=== PATIENT | female | born 1995 | race African-American/Black ===

== ENCOUNTER 2019-04-02 20:11 | Emergency (ER) | payer OTHER ==
[2019-04-02 21:13] LABS: #Lymphocytes 0.3 thou/uL (1.20-3.40); #Monocytes 0.3 thou/uL (0.11-0.59); #Neutrophils 6.9 thou/uL (1.40-6.50); %Eosinophils 0.5 % (0.0-10.0); %Lymphocytes 3.4 % (21.0-51.0); %Monocytes 4.2 % (0.0-10.0); %Neutrophils 91.9 % (42.0-75.0); Hemoglobin 12.7 g/dL (12.0-16.0); Mean Corpuscular HGB CONC 32.2 g/dL (32.0-36.0); Mean Corpuscular Hemoglobin 27.6 pg (27.0-31.0); Mean Corpuscular Volume 85.9 fL (78.0-98.0); Platelet Count 199 thou/uL (130-400); RBC Distribution Width 12.7 % (11.5-14.5); Red Blood Cell (RBC) Count 4.61 mill/uL (4.20-5.40); White Blood Cell (WBC) Count 7.5 thou/uL (4.8-10.8)
[2019-04-02] MEDS ORDERED: Ondansetron PF 4 MG/2 ML Vial ONE (21:27)
[2019-04-02 21:36] LABS: ALT (SGPT) 14 U/L (8-55); AST (SGOT) 21 U/L (5-34); Albumin 4.2 g/dL (3.5-5.0); Alkaline Phosphatase 73 U/L (40-150); Anion Gap 14 mmol/L (10-20); BUN (Urea Nitrogen) 7 mg/dL (7.0-18.7); Bilirubin, Total 0.5 mg/dL (0.2-1.2); Calc. Creatinine Clearance 0 mL/min (70-130); Calcium 9.6 mg/dL (7.8-10.44); Carbon Dioxide 18 mmol/L (22-29); Chloride 102 mmol/L (98-107); Estimated GFR-MDRD Greater than 90; Globulin 3.2 g/dL (2.4-3.5); Glucose 78 mg/dL (70-105); Lipase 26 U/L (8-78); Potassium 3.6 mmol/L (3.5-5.1); Protein, Total 7.4 g/dL (6.0-8.3); Sodium 130 mmol/L (136-145)
[2019-04-02 22:20] LABS: Bilirubin Negative (Negative); Blood, Urine Negative (Negative); Clarity Clear (Clear); Glucose, Urine (Dipstick) Normal (Negative); Leukocyte 25 Leu/uL (Negative); Mucous/LPF 2+ LPF (<2+); Nitrite Negative (Negative); Protein, Urine (Dipstick) 30 mg/dL (Neg-Trace); RBC/HPF 0-3 HPF (0-3); Squamous Epithelial 0-3 HPF (0-3); Urobilinogen Normal mg/dL (Less than 2); WBC/HPF 0-3 HPF (0-3)
--- NOTE | 2019-04-02 22:25 | RAD ---
EXAM: Portable chest PROVIDED CLINICAL HISTORY: Fever COMPARISON: None FINDINGS: Cardiac and mediastinal silhouette is within normal limits. No focal consolidation, pleural fluid or pneumothorax evident. IMPRESSION: No evidence for an acute cardiopulmonary process.
[2019-04-02 22:33] LABS: Bacteria/HPF Rare-Few HPF (None Seen)
[2019-04-03 01:27] LABS: Bilirubin Negative (Negative); Blood, Urine Negative (Negative); Clarity Clear (Clear); Glucose, Urine (Dipstick) Normal (Negative); Leukocyte Negative Leu/uL (Negative); Nitrite Negative (Negative); Protein, Urine (Dipstick) Negative (Neg-Trace); Urobilinogen Normal mg/dL (Less than 2)
--- NOTE | 2019-04-06 13:26 | EKG ---
Test Reason : Blood Pressure : / mmHG Vent. Rate : 102 BPM Atrial Rate : 102 BPM P-R Int : 154 ms QRS Dur : 086 ms QT Int : 332 ms P-R-T Axes : 040 060 002 degrees QTc Int : 432 ms Sinus tachycardia Nonspecific T wave abnormality Abnormal ECG Confirmed by DAMIR HAYNES MD ([id number]), editor map CHAZ YUAN ([id number]) on 04/06/2019 1:26:01 PM Referred By: Confirmed By:DAMIR HAYNES MD
== END 2019-04-03 01:43 | disposition home or self-care (01) ==
LOC: ERS 20:11
DX: O99.281 Endocrine, nutritional and metabolic diseases complicating pregnancy, first trimester (principal); E86.0 Dehydration; O99.011 Anemia complicating pregnancy, first trimester; Z3A.12 12 weeks gestation of pregnancy
CPT/HCPCS: 36415; 71045; 80053; 81003; 81015; 83605; 83690; 85025; 87086; 87804; 93005; 96361; 96374; J2405

== ENCOUNTER 2019-09-19 17:47 | Day surgery (SDC) | payer OTHER ==
[2019-09-19 18:17] VITALS: BMI 23.6
[2019-09-19 18:23] VITALS: BP 116/63; TEMP 98.6
[2019-09-19] MEDS ORDERED: hydrALAZINE 20 MG/ML VIAL SLOW IVP PRN (19:43)
--- NOTE | 2019-09-19 20:00 | HP ---
TIME OF EVALUATION: 1930 until 1944. LOCATION: Labor and Delivery in Triage bed A. This is a patient of Barb Pearson. REASON FOR EVALUATION: Spotting at 37 weeks and 2 days. HISTORY OF PRESENT ILLNESS: This is a 23-year-old , G1, P0, at 37 weeks and 2 days with an EDC of 10/08/2019, here for some spotting. She states that she has a history of herpes simplex virus, but has no symptoms of a current outbreak and she is on Valtrex. She states that she was seen by Barb Pearson today in the office and she had an exam performed and she was 1 cm. She has good movement. Denies leakage of fluid and denies gross bleeding. REVIEW OF SYSTEMS: Complete review of systems was checked and is otherwise negative unless specified in the HPI. PAST MEDICAL HISTORY: Negative. ALLERGIES: NONE. SOCIAL HISTORY: Negative for alcohol, tobacco, or smoking. PAST SURGICAL HISTORY: Prior tonsils and adenoid removal. PHYSICAL EXAMINATION: VITAL SIGNS: Her blood pressure is 116/63, respirations are 18 and unlabored, and she is afebrile. Her pulse is in the 80s. GENERAL: She is in no acute distress. ABDOMEN: Soft and nontender. CERVICAL: Exam is performed by Ted, the patient's nurse, reveals her cervix to be 1 cm dilated, thick, and still -2 to -3 station. There is no gross evidence of bleeding or leakage of fluid. External monitor, I reviewed the heart tracing and the heart tones are reassuring with a normal baseline at about 150 with moderate variability and acceleration. There are no decelerations. Tocodynamometer shows irregular contractions about every 1-3 minutes, but they are still irregular. ASSESSMENT: This is a G1, P0, at early term (37 weeks and 2 days), who is having spotting likely because of her prior cervical examination. There is no recent history of trauma or a vaginal intercourse. The patient states good movement and strip is reactive. PLAN: 1. Reassurance given. 2. No evidence of labor at this time. 3. Okay for expectant management and okay for the patient to keep her followup appointment. 4. I have evaluated and seen the patient at bedside and given her this information as well. Job ID: [id number]
== END 2019-09-19 20:02 | disposition home or self-care (01) ==
LOC: L&D/OP 17:47
PROVIDERS: ATTEND Advanced Practice Midwife
DX: O26.853 Spotting complicating pregnancy, third trimester (principal); O98.513 Other viral diseases complicating pregnancy, third trimester; B00.9 Herpesviral infection, unspecified; Z3A.37 37 weeks gestation of pregnancy
CPT/HCPCS: 99282

== ENCOUNTER 2019-09-26 06:00 | Inpatient (IN) | payer OTHER ==
--- NOTE | 2019-09-26 06:24 | PDOC.LDHP ---
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 Current medications: pre- vitamins, iron Previous surgical history: other (Tonsils and adenoids) Allergies/Adverse Reactions: Allergies Allergy/AdvReac Type Severity Reaction Status Date / Time No Known Allergies Allergy Unverified 09/19/19 18:26 Social history: none - Physical Exam Vital signs reviewed and normal: yes General: NAD Heart: RRR Lungs: nonlabored breathing Abdomen: gravid Extremeties: no edema FHT: category 1 - OB Labs Blood type: B RH: positive Antibody Screen: negative HIV: negative RPR: negative HEPSAg: negative 1 hour GCT: negative GBS: negative Urine drug screen: negative Rubella: immune Additional Labs: low risk NIPS neg ms AFP - Assessment L&D Assessment: medically indicated induction - Plan Plan: admit to L&D, other (Remove Dilapan cerical dilators x 5 Start pitocin for IOL)
[2019-09-26] MEDS ORDERED: Lidocaine 2% MPF 10 ML AMP (For Epidural Use) ONE (11:27)
[2019-09-26] MEDS ORDERED: Methylergonovine 0.2 MG/ML VIAL IM PRN ×2 (12:07→20:50)
[2019-09-26] MEDS ORDERED: HYDROcodone/Acetaminophen 5/325 mg Tablet PO PRN ×4 (12:07→20:50)
[2019-09-26] MEDS ORDERED: hydrALAZINE 20 MG/ML VIAL SLOW IVP PRN ×2 (12:07→20:50)
[2019-09-26] MEDS ORDERED: Ibuprofen 800 MG TAB PO PRN (12:07)
[2019-09-26] MEDS ORDERED: Promethazine HCl 25 MG/ML VIAL IM PRN ×2 (12:07→15:41)
[2019-09-26] MEDS ORDERED: Ondansetron PF 4 MG/2 ML Vial IVP PRN ×2 (12:07→15:41)
[2019-09-26] MEDS ORDERED: Misoprostol 200 MCG TAB PR PRN (12:07)
[2019-09-26] MEDS ORDERED: NS / Oxytocin 40 units/1000ml 1,000 ML IV PRN (12:07)
[2019-09-26] MEDS ORDERED: Lidocaine 1% (PF) 30 ML VIAL SC PRN (12:07)
[2019-09-26] MEDS ORDERED: Butorphanol Tartrate 1 MG/ML VIAL SLOW IVP PRN (12:07)
[2019-09-26] MEDS ORDERED: NS w/ Oxytocin 10 units 500 ML IV SCH (12:07)
[2019-09-26] MEDS: Lactated Ringer's 1,000 ML IV SCH ×2 (12:22→15:40)
[2019-09-26 12:37] VITALS: BMI 23.6
[2019-09-26 12:37] LABS: Hemoglobin 12.4 g/dL (12.0-16.0); Mean Corpuscular HGB CONC 32.5 g/dL (32.0-36.0); Mean Corpuscular Hemoglobin 27.9 pg (27.0-31.0); Mean Corpuscular Volume 85.9 fL (78.0-98.0); Mean Platelet Volume 9.7 fL (7.4-10.4); Platelet Count 170 thou/uL (130-400); RBC Distribution Width 13.7 % (11.5-14.5); Red Blood Cell (RBC) Count 4.44 mill/uL (4.20-5.40); White Blood Cell (WBC) Count 9.8 thou/uL (4.8-10.8)
[2019-09-26 13:18] LABS: HBSAg Index 0.26 S/CO (0-0.99); Hep B Surf Ag Non-Reactive S/CO (NonReactive)
[2019-09-26 13:18] LABS: Syphilis Antibody Nonreactive (Nonreactive); Syphilis Antibody Index 0.04 S/CO (<1.00 Non-Reactive)
[2019-09-26] MEDS ORDERED: Fentanyl 4 mcg/Bup 0.1% Cadd 100 ML ONE (15:06)
[2019-09-26] MEDS ORDERED: ePHEDrine/0.9% NaCl/PF SYRINGE 50 mg/10 ml SLOW IVP PRN (15:41)
[2019-09-26] MEDS ORDERED: diphenhydrAMINE 50 MG/ML VIAL IVP PRN (15:41)
[2019-09-26] MEDS ORDERED: Lactated Ringer's 500 ML IV PRN (15:41)
[2019-09-26] MEDS ORDERED: Naloxone HCl 0.4 mg/ml Vial IVP PRN ×2 (15:41)
[2019-09-26] MEDS ORDERED: Acetaminophen 325 MG TAB PO PRN (15:41)
[2019-09-26] MEDS ORDERED: Fentanyl 4 mcg/Bupivacaine 0.1% Cassette 100 ML EPIDURAL SCH (15:45)
[2019-09-26] MEDS ORDERED: Communication Order-Pharmacy FS SCH (15:45)
--- NOTE | 2019-09-26 17:22 | PDOC.OPDEL ---
OB Operative/Delivery Note Delivery Dr/Surgeon: Ruben byrne Pre-Delivery Diagnosis: medically indicated induction Procedure/Post Delivery Dx: spontaneous vaginal delivery Weeks gestation: 38 Anesthesia: epidural - Findings A Sex: male Weight: 6 lb 3 oz - 1 min: 8 - 5 min: 9 - Additional Findings/Plan Placenta delivered: spontaneous Repaired Obstetrical Laceration: none Estimated blood loss: 500mL Post delivery plan: routine recovery
[2019-09-26] MEDS ORDERED: Bisacodyl 10 MG SUPP PR PRN (20:50)
[2019-09-26] MEDS ORDERED: NS / Oxytocin 40 units/1000ml 1,000 ML IV SCH (20:50)
[2019-09-26] MEDS ORDERED: Benzocaine-Menthol 82.5 ML CAN TOP PRN (20:50)
[2019-09-26] MEDS ORDERED: Misoprostol 200 MCG TAB VAG PRN (20:50)
[2019-09-26] MEDS ORDERED: Milk Of Magnesia 30 ML UDCUP PO PRN (20:50)
[2019-09-26] MEDS: Ibuprofen 800 MG TAB PO SCH (22:31)
[2019-09-26] MEDS: Docusate Calcium (SURFAK) 240 MG CAP PO SCH (22:31)
[2019-09-27] MEDS: Ibuprofen 800 MG TAB PO SCH ×3 (05:06→21:14)
--- NOTE | 2019-09-27 05:31 | PDOC.PP ---
Post Progress Note Post Day #: 1 PO intake tolerated: yes Flatus: yes Ambulation: yes Vital Signs (12 hours) Temp Pulse Resp BP BP Pulse Ox 09/27/19 05:00 97.8 F 57 L 20 101/50 L 98 09/27/19 00:50 98.4 F 75 18 105/55 L 96 09/26/19 22:35 98.3 F 70 18 108/57 L 09/26/19 21:00 97.7 F 57 L 18 120/64 09/26/19 20:00 99.4 F 64 16 117/58 L 98 Weight Weight 155 lb - Physical Examination Respiratory: non-labored breathing Abdominal: + bowel sounds, lochia (minimal), no distention Fundus firm & at: -1 Extremities: negative homans (B) Skin: no rash Neurological: no gross focal deficits Result Diagrams: 09/26/19 12:21 Additional Labs: Post Labs Blood Type B POSITIVE 09/26/19 13:25 Hep Bs Antigen Non-Reactive S/CO (NonReactive) 09/26/19 12:20 (1) (spontaneous vaginal delivery) Code(s): O80 - ENCOUNTER FOR FULL-TERM UNCOMPLICATED DELIVERY Status: Acute (2) Herpes Code(s): B00.9 - HERPESVIRAL INFECTION, UNSPECIFIED Status: Acute (3) IUGR (intrauterine growth restriction) Status: Acute - Assessment/Plan A; G1 now p1 sp following IOL for IUGR P; routine care discharge home tomorrow
[2019-09-27] MEDS ORDERED: Lanolin Ointment 7 GM TUBE TOP PRN (05:33)
[2019-09-27] MEDS: Ferrous Sulfate 325 MG TAB PO SCH ×2 (08:55→17:07)
[2019-09-27] MEDS: Prenatal Vitamin 1 TAB PO SCH (09:50)
[2019-09-27] MEDS: Docusate Calcium (SURFAK) 240 MG CAP PO SCH ×2 (09:50→21:14)
[2019-09-27] MEDS ORDERED: Adacel (T-DAP) 0.5 ML SYRINGE IM ONE (21:00)
[2019-09-28] MEDS: Ibuprofen 800 MG TAB PO SCH ×2 (06:23→14:18)
[2019-09-28] MEDS: Ferrous Sulfate 325 MG TAB PO SCH ×2 (08:35→17:33)
[2019-09-28 09:12] VITALS: BP 115/63; TEMP 97.4
[2019-09-28] MEDS: Docusate Calcium (SURFAK) 240 MG CAP PO SCH (09:51)
[2019-09-28] MEDS: Prenatal Vitamin 1 TAB PO SCH (09:51)
== END 2019-09-28 17:15 | disposition home or self-care (01) | DRG 806 ==
LOC: L&D 10:40 → 3SW 20:03
PROVIDERS: ADMIT Obstetrics & Gynecology; ATTEND Obstetrics & Gynecology
PROC: 10E0XZZ Delivery of Products of Conception, External Approach (ICD-10-PCS; principal; 2019-09-26)
PROC: 10907ZC Drainage of Amniotic Fluid, Therapeutic from Products of Conception, Via Natural or Artificial Opening (ICD-10-PCS; 2019-09-26)
PROC: 3E033VJ Introduction of Other Hormone into Peripheral Vein, Percutaneous Approach (ICD-10-PCS; 2019-09-26)
DX: O36.5930 Maternal care for other known or suspected poor fetal growth, third trimester, not applicable or unspecified (principal); O41.03X0 Oligohydramnios, third trimester, not applicable or unspecified; Z37.0 Single live birth; O98.52 Other viral diseases complicating childbirth; B00.89 Other herpesviral infection; Z3A.38 38 weeks gestation of pregnancy; O71.82 Other specified trauma to perineum and vulva; O75.89 Other specified complications of labor and delivery; Z14.8 Genetic carrier of other disease
CPT/HCPCS: 36415; 85027; 86780; 86850; 86900; 86901; 87340; J2001; J2405; J2590